=== PATIENT | male | born 1985 | race Caucasian/White ===

== ENCOUNTER 2021-03-17 09:05 | Emergency (ER) | payer OTHER, SELFPAY ==
--- NOTE | 2021-03-17 09:09 | ED_ITS ---
HPI - General Adult General Chief complaint: Eye Problems Stated complaint: Hit in head Time Seen by Provider: 03/17/21 09:07 Source: patient Mode of arrival: Ambulatory Limitations: no limitations History of Present Illness HPI narrative: 35-year-old otherwise healthy male here for evaluation of a left eye injury. Patient does not were glasses. Does not were contacts. No prior surgeries. Here for evaluation of injuries that he sustained just prior to arrival. He states he was at work when a hose with high-pressure water broke from the equipment that he was using any states that he came up and hit him just left of his left eye. He states that he did get water in his face but he did not think it was directly into was eye. He has some tenderness around the outside of the eye. Also has blurry vision. No other injuries reported from the event. Related Data Previous Rx's Medication Instructions Recorded erythromycin 0.5 inch EYE-LEFT TID #3.5 g 03/17/21 Allergies Allergy/AdvReac Type Severity Reaction Status Date / Time No Known Drug Allergies Allergy Verified 03/17/21 09:17 Review of Systems Constitutional Constitutional: Denies fever(s) and Denies headache(s) Eyes Eyes: Reports blurry vision, Reports change in vision, Reports irritation, Denies loss of vision and Denies spots in vision ENT Ears, Nose, Mouth, and Throat: Denies otalgia, Denies headache(s), Denies mouth lesions, Denies sinus pain and Denies sore throat Cardiovascular Cardiovascular: Denies chest pain and Denies dyspnea Respiratory Respiratory: Denies dyspnea Integumentary/Breasts Comments: Small cut upper eyelid Neurologic Neurologic: Denies behavioral changes, Denies headache(s) and Denies loss of vision Psychiatric Psychiatric: Denies behavioral changes Hematologic/Lymphatic On Anticoagulants: No Allergic/Immunologic Allergic/Immunologic: Denies urticaria Patient History Medical History Healthy adult Social History Smoking Status: Never smoker Exam Initial Vital Signs Initial Vital Signs: Vital Signs Temperature 98.8 F 03/17/21 09:13 Pulse Rate 68 03/17/21 09:13 Respiratory Rate 15 03/17/21 09:13 Blood Pressure 180/89 H 03/17/21 09:13 Pulse Oximetry 100 04/26/21 09:13 Const General: cooperative, healthy appearing, comfortable and well developed Limitations: mental status not altered HENMT Head: normal to inspection and normocephalic Ears: hearing grossly normal bilaterally Nose: external nose normal Face and sinus: normal facial exam and sinuses nontender Mouth: oral mucosae normal Teeth and gingiva: dentition normal Eyes Alignment and Position: alignment normal Conjunctivae: conjunctivae normal Sclera: sclerae normal Cornea: corneas normal and fluorescein used Pupils: PERRL EOM: EOM intact bilaterally Other: Right eye is unremarkable Visual acuity right eye 20/15 Visual acuity left eye 20/40 Left eye, very small superficial abrasion to upper eyelid medial aspect. Needs no intervention no active bleeding. Small contusion to the upper eyelid lateral aspect left eye. No step-offs noted with palpation of periorbital region bilateral eyelids Skin Other: Small superficial abrasion to the upper eyelid nasal aspect left eye Neuro General: patient alert, patient awake and patient oriented x3 Cognition: normal cognition Speech: speech normal Extrem General: normal to inspection and capillary refill normal Psych Appearance: grossly normal and well kempt Course Orders Ordered: Discontinued Medications Fluorescein Sodium (Fluorescein 1 Mg Strip) 1 mg EYE-BOTH NOW ONE Stop: 03/17/21 09:14 Last Admin: 03/17/21 09:22 Dose: 1 mg Documented by: Proparacaine HCl (Proparacaine 0.5% Ophth Seda) 1 drops EYE-LEFT NOW ONE Stop: 03/17/21 09:15 Last Admin: 03/17/21 09:21 Dose: 1 drop Documented by: Vital Signs Vital signs: Vital Signs - 8 hr 03/17/21 09:13 Temperature 98.8 F Pulse Rate 68 Respiratory Rate 15 Blood Pressure 180/89 H Pulse Oximetry 100 Medical Decision Making [facility] Narrative Medical decision making narrative: Patient very well-appearing. Pupils around. Low suspicion for open globe. Extraocular muscles intact. Low suspicion for orbital fracture. No foreign body noted. No corneal abrasion noted with use of floor seen. The small abrasion on the medial aspect of the upper eyelid on the left needs no intervention. Is not actively bleeding. Does have a small contusion on the temporal aspect upper eyelid most likely from where he was hit with the object. I feel we can hold on a CT scan. Discussed the case with Dr. Lozano with Ophthalmology who recommend the patient come over for evaluation. Discharge Plan Departure Patient Disposition: Home Clinical Impression: Abrasion of eyelid, left, Contusion of eyelid, left, Irritation of left eye Instructions: DI for Eye Contusion Activity Restrictions/Additional Instructions: I would not be surprised if you develop some bruising around her left eye. You can use ice for this. Use the antibiotic ointment like we discussed. Contact your primary provider for follow-up. I did discuss her case with Dr. Lozano with the Ophthalmology Department and he stated that he would like to see you in the clinic. Please go there after discharge from the emergency department. Prescriptions: New erythromycin 5 mg/gram (0.5 %) ointment 0.5 inch EYE-LEFT TID Qty: 3.5 RF: 0
[2021-03-17 09:13] VITALS: BP 180/89; PULSE 68; RESP 15; TEMP 37.1; O2SAT 100; BMI 40.8
[2021-03-17] MEDS: PROPARACAINE 0.5% OPHTH SOL 1 DROPS EYE-LEFT (09:21)
[2021-03-17] MEDS: FLUORESCEIN 1 MG STRIP EYE-BOTH (09:22)
[2021-03-17] MEDS: ERYTHROMYCIN OPHTH 1 GM OINT 1 APPLIC EYE-LEFT (09:26)
[2021-03-17 09:49] VITALS: BP 177/82; PULSE 62; RESP 15; O2SAT 99
== END 2021-03-17 09:52 | disposition home or self-care (01) ==
LOC: ED 09:50
PROVIDERS: Emergency Provider Emergency Medicine; Referring Provider Emergency Medicine
DX: S00.212A Abrasion of left eyelid and periocular area, initial encounter (principal); S00.12XA Contusion of left eyelid and periocular area, initial encounter; W22.8XXA Striking against or struck by other objects, initial encounter; Y99.0 Civilian activity done for income or pay
CPT/HCPCS: 99282

== ENCOUNTER 2024-02-09 11:23 | Emergency (ER) | payer OTHER, SELFPAY ==
[2024-02-09 11:25] VITALS: BP 156/103; PULSE 97; RESP 18; TEMP 36.6; O2SAT 98; BMI 40.1
--- NOTE | 2024-02-10 09:49 | ED_ITS ---
HPI - Back Pain/Injury <Geovanna Kumar PA-C - Last Filed: 02/10/24 09:54> General Chief Complaint: Back Pain/Injury Stated Complaint: severe back pain Time Seen by Provider: 02/09/24 11:55 Source: patient History of Present Illness HPI Narrative: Patient is a 38-year-old male with no significant past medical history who presents with acute low back pain. He reports he was clamming 4 days ago and he felt a sharp pain when he stood up from bending over. Since then, he has had low back pain that does not radiate. He has no pain that shoots down his legs. He has no loss of bowel or bladder control, no saddle anesthesia or lower extremity weakness. He has been taking ibuprofen with minimal relief. His pain is aggravated by sitting, feels better when standing. 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 Related Data Previous Rx's Medication Instructions Recorded erythromycin 5 mg/gram (0.5 %) eye 0.5 inch EYE-LEFT TID #3.5 grams 03/17/21 ointment cyclobenzaprine 10 mg tablet 10 mg PO TID PRN muscle spasm #10 02/09/24 tabs Allergies Allergy/AdvReac Type Severity Reaction Status Date / Time No Known Drug Allergies Allergy Verified 03/17/21 09:17 Review of Systems <Geovanna Kumar PA-C - Last Filed: 02/10/24 09:54> Review of Systems ROS Unobtainable: All systems reviewed & are unremarkable except as noted in HPI and below Patient History <Geovanna Kumar PA-C - Last Filed: 02/10/24 09:54> Medical History Healthy adult Social History Smoking Status: Never smoker Smoking Status: Never smoker alcohol intake frequency: a few times a week Substance Use Type: does not use Exam <Geovanna Kumar PA-C - Last Filed: 02/10/24 09:54> Narrative Exam Narrative: GENERAL: 38 year old patient appears stated age. Well-developed patient, in mild acute distress. NEURO: AOx3. HEAD: Atraumatic. Normocephalic. EYES: Pupils equal round and reactive. Extraocular motions intact. No scleral icterus. No injection or drainage. ENT: Nose without bleeding or purulent drainage. Airway patent. RESPIRATORY: No distress. EXTREMITIES: No edema or joint tenderness. SPINE: Patient has no midline tenderness to palpation. He has tenderness in the lumbar paraspinals and over the bilateral SI joints. He is able to ambulate steadily. Forward flexion causes pain. Strength is intact in his lower extremities SKIN: No rash or erythema of visible areas Initial Vital Signs Initial Vital Signs: Vital Signs Temperature 97.9 F 02/09/24 11:25 Pulse Rate 97 H 02/09/24 11:25 Respiratory Rate 18 02/09/24 11:25 Blood Pressure 156/103 H 02/09/24 11:25 Pulse Oximetry 98 02/09/24 11:25 Oxygen Delivery Method Room Air 02/09/24 11:25 <Sonya Rogers MD - Last Filed: 02/10/24 17:57> Initial Vital Signs Initial Vital Signs: Vital Signs Temperature 97.9 F 02/09/24 11:25 Pulse Rate 97 H 02/09/24 11:25 Respiratory Rate 18 02/09/24 11:25 Blood Pressure 156/103 H 02/09/24 11:25 Pulse Oximetry 98 02/09/24 11:25 Oxygen Delivery Method Room Air 02/09/24 11:25 MDM - Back Pain/Injury <Geovanna Kumar PA-C - Last Filed: 02/10/24 09:54> MDM Narrative Medical decision making narrative: Multiple etiologies for patient's symptoms considered including, but not limited to: Fracture, dislocation, lumbar strain History and physical exam sent consistent with lumbar strain. There has been no midline tenderness, no fall or trauma. Patient has no red flags for cauda equina, spinal epidural abscess or hematoma. Provided education regarding expected course of muscular low back pain. Patient agreeable to trying muscle relaxers for symptomatic relief. Provided education on using NSAIDs and ice. Encouraged gentle movement such as walking and stretching. Handout given on stretches for low back pain. Unable to give Toradol his prior visit due to dose of ibuprofen prior to arrival. Patient given return precautions. Instructed to follow up with PCP (Dr. Tovar) if pain not improving in 1 week for consideration of PT referral. Patient's symptoms improved over duration of stay with above-stated therapies. Findings and discharge diagnosis discussed with patient/family followed by verbalization of understanding Return precautions discussed with patient/family whom verbalize understanding of diagnosis and plan Discharge Plan Departure Patient Disposition: Home Clinical Impression: Strain of lumbar region Qualifiers: Encounter type: initial encounter Qualified Code(s): S39.012A - Strain of muscle, fascia and tendon of lower back, initial encounter Instructions: DI for Low Back Pain Activity Restrictions/Additional Instructions: *You have been diagnosed with low back pain. This is likely coming from the muscles and nerves in your low back. I have included several handouts on supportive care. If your pain isn't improving after 1 week of supportive care, please reach out to your primary care to discuss further evaluation. If you develop loss of control of your bowel or bladder, numbness in your groin or weakness in your legs, please return to the emergency department immediately. I have prescribed a muscle relaxer medicine that can help alleviate some of the spasm. This medicine may make you sleepy and should not be combined with other sedative medications or alcohol. Do not drive while taking this medication. [id number] lidocaine patches may also provide some relief. Back pain like this can last for 4-6 weeks but should start to slowly improve over time. *What to do: *Please continue to take your regular medications as directed. [x] New medication prescriptions sent to your pharmacy: [facility] [ ] New medication written as a paper prescription [ ] No new medications given *Please follow up with your primary care provider in 2-3 days, call for an appointment. Let them know you were seen in the Emergency Department and that we ask that you be seen in follow up. We will electronically transmit a record of today's note if your PCP is in our system *If you do not have a primary care provider please contact the [facility] Resource line at [phone]. They will ask some questions about your medical history and help get you set up with a doctor in the community. *Return to Emergency Department if you should have any new, worsening or concerning symptoms, such as [fever greater than 101 F, shaking chills, worsening pain, persistent vomiting or other concerning symptoms]. Prescriptions: New cyclobenzaprine 10 mg tablet 10 mg PO TID PRN (Reason: muscle spasm) Qty: 10 0RF No Action erythromycin 5 mg/gram (0.5 %) ointment 0.5 inch EYE-LEFT TID Qty: 3.5 0RF Stand Alone Forms: Patient Portal/API ED Sign-out <Sonya Rogers MD - Last Filed: 02/10/24 17:57> Cosign ED Attending Cosignature Attestation: I was immediately available in the department for consultation throughout this patient's visit. Sonya Rogers MD
== END 2024-02-09 12:14 | disposition home or self-care (01) ==
PROVIDERS: Emergency Provider Physician Assistant
DX: S39.012A Strain of muscle, fascia and tendon of lower back, initial encounter (principal); X50.1XXA Overexertion from prolonged static or awkward postures, initial encounter
CPT/HCPCS: 99281; 99282